=== PATIENT | male | born 1990 | race Caucasian/White ===

== ENCOUNTER 2019-09-11 15:48 | Outpatient (CLI) | payer SELFPAY | END 2019-09-11 15:49 | disposition home or self-care (01) | LOC: LAB 15:55 | PROVIDERS: Visit Provider Obstetrics & Gynecology | DX: Z13.0 Encounter for screening for diseases of the blood and blood-forming organs and certain disorders involving the immune mechanism (principal) | CPT/HCPCS: 36415; 86902 ==